=== PATIENT | female | born 1980 | race Caucasian/White ===

== ENCOUNTER 2016-08-29 18:25 | Emergency (ER) | payer BC ==
[~2016-08-29 18:25] MED LIST: AT25 PO; LATUDA40 MG PO; NEUR100 PO; PROAIR HFA INH; TRILEP300 PO
[2016-08-29 19:01] LABS: ASCORBIC ACID (UR NOT ORDER) NEG (NEG); BILIRUBIN, URINE NEGATIVE (NEG); ER URINALYSIS TAT 0 Hrs 00 Mins; KETONE, URINE NEGATIVE (NEG); LEUKOCYTE ESTERASE(NOT OR TRACE (NEG); NITRITE (URINE) NEG (NEG); WBC (NOT ORDERED) (RFLEX) 1 (0-5)
[2016-08-29 21:18] LABS: CHLAMYDIA TRACH PCR NOT DETECTED (NOT DETEC); GC PCR NOT DETECTED (NOT DETECT); SOURCE: FEMALE URINE
== END 2016-08-29 19:35 | disposition home or self-care (01) ==
LOC: ER 18:25
PROVIDERS: Nurse Practitioner Acute Care
DX: R30.0 Dysuria (principal); F17.200 Nicotine dependence, unspecified, uncomplicated; Z91.040 Latex allergy status; Z79.899 Other long term (current) drug therapy
CPT/HCPCS: 81001; 84703; 87491; 87591; 99284